=== PATIENT | female | born 1995 | race Caucasian/White ===

== ENCOUNTER → 2021-04-21 13:06 | Outpatient (BNVA) | payer SELFPAY | PROVIDERS: Visit Provider Nurse Practitioner Women's Health | DX: Z87.59 Personal history of other complications of pregnancy, childbirth and the puerperium (principal) | CPT/HCPCS: 81025; 84702 ==

== ENCOUNTER → 2021-04-23 10:03 | Outpatient (BNVA) | payer SELFPAY | PROVIDERS: Visit Provider Nurse Practitioner Women's Health | DX: Z87.59 Personal history of other complications of pregnancy, childbirth and the puerperium (principal) | CPT/HCPCS: 84702 ==

== ENCOUNTER → 2021-05-07 08:30 | Outpatient (BNVA) | payer SELFPAY | PROVIDERS: Visit Provider Nurse Practitioner Women's Health | DX: Z34.80 Encounter for supervision of other normal pregnancy, unspecified trimester (principal) | CPT/HCPCS: 81000 ==

== ENCOUNTER → 2021-05-31 13:40 | Outpatient (BNVA) | payer SELFPAY | PROVIDERS: Visit Provider Obstetrics & Gynecology | DX: Z34.80 Encounter for supervision of other normal pregnancy, unspecified trimester (principal) | CPT/HCPCS: 80307; 81000; 84443; 85025; 86592; 86762; 86803; 86850; 86900; 87086; 87340 ==

== ENCOUNTER → 2021-06-17 13:02 | Outpatient (BNVA) | payer SELFPAY | PROVIDERS: Visit Provider Obstetrics & Gynecology | DX: Z34.80 Encounter for supervision of other normal pregnancy, unspecified trimester (principal) | CPT/HCPCS: 81000; 87491; 87591; 87661; 88175 ==

== ENCOUNTER → 2021-07-19 11:46 | Outpatient (BNVA) | payer SELFPAY | PROVIDERS: Visit Provider Obstetrics & Gynecology | DX: Z34.80 Encounter for supervision of other normal pregnancy, unspecified trimester (principal) | CPT/HCPCS: 81000 ==

== ENCOUNTER → 2021-08-12 14:05 | Outpatient (BNVA) | payer SELFPAY | PROVIDERS: Visit Provider Obstetrics & Gynecology | DX: Z34.80 Encounter for supervision of other normal pregnancy, unspecified trimester (principal) | CPT/HCPCS: 81000 ==

== ENCOUNTER → 2021-09-03 11:29 | Outpatient (BNVA) | payer SELFPAY | PROVIDERS: Visit Provider Obstetrics & Gynecology | DX: O99.891 Other specified diseases and conditions complicating pregnancy (principal); Z67.91 Unspecified blood type, Rh negative; Z81.0 Family history of intellectual disabilities; Z82.79 Family history of other congenital malformations, deformations and chromosomal abnormalities; O99.340 Other mental disorders complicating pregnancy, unspecified trimester; F32.A Depression, unspecified; Z3A.00 Weeks of gestation of pregnancy not specified | CPT/HCPCS: 81000 ==

== ENCOUNTER → 2021-10-01 09:55 | Outpatient (BNVA) | payer SELFPAY | PROVIDERS: Visit Provider Obstetrics & Gynecology | DX: Z34.80 Encounter for supervision of other normal pregnancy, unspecified trimester (principal) | CPT/HCPCS: 81000; 82950; 84443; 85025; 86850 ==

== ENCOUNTER → 2021-10-15 10:55 | Outpatient (BNVA) | payer SELFPAY | PROVIDERS: Visit Provider Obstetrics & Gynecology | DX: Z34.90 Encounter for supervision of normal pregnancy, unspecified, unspecified trimester (principal) | CPT/HCPCS: 81000 ==

== ENCOUNTER → 2021-11-03 09:30 | Outpatient (BNVA) | payer SELFPAY | PROVIDERS: Visit Provider Obstetrics & Gynecology | DX: Z34.80 Encounter for supervision of other normal pregnancy, unspecified trimester (principal) | CPT/HCPCS: 81000 ==

== ENCOUNTER → 2021-11-12 13:22 | Outpatient (BNVA) | payer SELFPAY | PROVIDERS: Visit Provider Obstetrics & Gynecology | DX: Z34.80 Encounter for supervision of other normal pregnancy, unspecified trimester (principal) | CPT/HCPCS: 81000 ==

== ENCOUNTER → 2021-11-26 11:31 | Outpatient (BNVA) | payer SELFPAY | PROVIDERS: Visit Provider Obstetrics & Gynecology | DX: Z34.80 Encounter for supervision of other normal pregnancy, unspecified trimester (principal) | CPT/HCPCS: 81000; 87081 ==

== ENCOUNTER 2021-12-09 15:20 | Outpatient (CLI) | payer SELFPAY ==
[2021-12-09] VITALS (7 sets, daily range): BP systolic 101–114; BP diastolic 62–69; PULSE 67–73; RESP 16–18; TEMP 36.1; BMI 27.6
[2021-12-09 16:21] LABS: Add Urine Culture? Yes; Bacteria Urine 1+ /hpf; Bilirubin Urine Neg (Negative); Blood Urine Neg (Negative); Glucose Urine UA Norm (Normal); Ketones Urine Negative (Negative); Leukocyte Esterase Urine Trace (Negative); Nitrate Urine Negative (Negative); Protein Urine Neg (Negative); RBC Urine 0-4 /hpf (0-2); Specific Gravity, Urine 1.005 (1.005-1.030); Squamous Epithelial Cell Urine 0-4 /hpf (0-5); Urine Appearance Clear (CLEAR); Urine Color Yellow (Yellow); Urobilinogen Urine Norm (Negative); WBC Urine 0-4 /hpf (0-5); pH Urine 7 (5-7)
[2021-12-24 11:57] VITALS: BP 99/70; PULSE 79; TEMP 36.7
[2021-12-24 12:13] VITALS: BP 103/64; PULSE 81
[2021-12-24 12:26] VITALS: BP 111/69; PULSE 72
== END 2021-12-09 15:55 | disposition home or self-care (01) ==
LOC: OPOB 15:27 → OBGYN 15:28
PROVIDERS: Visit Provider Obstetrics & Gynecology
DX: O26.899 Other specified pregnancy related conditions, unspecified trimester (principal); Z3A.00 Weeks of gestation of pregnancy not specified; M54.50 Low back pain, unspecified; R51.9 Headache, unspecified
CPT/HCPCS: 59025; 81001; 87086; 99211

== ENCOUNTER → 2021-12-10 14:04 | Outpatient (BNVA) | payer SELFPAY | PROVIDERS: Visit Provider Obstetrics & Gynecology | DX: Z34.90 Encounter for supervision of normal pregnancy, unspecified, unspecified trimester (principal) | CPT/HCPCS: 81000 ==

== ENCOUNTER → 2021-12-17 11:07 | Outpatient (BNVA) | payer SELFPAY | PROVIDERS: Visit Provider Obstetrics & Gynecology | DX: Z34.80 Encounter for supervision of other normal pregnancy, unspecified trimester (principal) | CPT/HCPCS: 81000 ==

== ENCOUNTER 2021-12-24 12:35 | Inpatient (IN) | payer SELFPAY ==
[2021-12-24] VITALS (26 sets, daily range): BP systolic 93–135; BP diastolic 55–80; PULSE 56–81; RESP 15–18; TEMP 36.7–36.9; BMI 27.9
--- NOTE | 2021-12-24 13:27 | PM.OPHPUD ---
Labor & Delivery H&P Update Date of Procedure: December 24, 2021 Date H&P Performed: 12/24/21 H&P update information: I have reviewed H&P completed within last 30 days, I have examined patient prior to procedure and No changes to prior documentation Admission Diagnosis: Term Primary indication for procedure: Elective induction Planned procedure: Vaginal delivery
[2021-12-24] MEDS: miSOPROStol 100 mcg tablet 25 MCG VAGINAL (13:29)
[2021-12-24 14:01] LABS: Basophils # 0.1 10^3/uL (0.0-0.1); Basophils % 0.5 %; Eosinophils # 0.1 10^3/uL (0.0-0.8); Eosinophils % 0.6 %; Hematocrit 35.8 % (37.0-47.0); Hemoglobin 12.3 g/dL (11.5-15.3); Lymphocytes # 1.7 10^3/uL (0.8-4.8); Lymphocytes % 12.4 %; Mean Corpuscular HGB Conc 34.4 g/dL (30.0-36.0); Mean Corpuscular Hemoglobin 28.3 pg (28.0-34.0); Mean Corpuscular Volume 82.5 fl (81-99); Mean Platelet Volume 10.9 fL (7.4-10.4); Monocytes # 0.7 10^3/uL (0.2-0.9); Monocytes % 5.3 %; Neutrophils # 11.22 10^3/uL (1.8-7.7); Neutrophils % 80.3 %; Nucleated Red Blood Cells % 0 %; Platelet Count 243 10^3/cmm (130-400); Red Blood Count 4.34 10^6/uL (4.1-5.3); Red Cell Distribution Width 13.6 % (12.1-15.1)
[2021-12-24] MEDS: dextrose 5%-lactated ringers 1,000 ML 125 ML IV (21:25)
[2021-12-24] MEDS: oxytocin 30 UNIT/500 ML BAG IV (23:00)
[2021-12-25] VITALS (33 sets, daily range): BP systolic 86–161; BP diastolic 50–87; PULSE 49–146; RESP 15–18; TEMP 36.7–37.2
[2021-12-25] MEDS: lactated ringers 1,000 ML 999 ML IV (03:20)
[2021-12-25 04:21] LABS: Base Excess Cord Venous Blood -7.8; Cord Venous Blood HCO3 19.9; Cord Venous Blood PCO2 47.8; Cord Venous Blood PO2 47.8; Cord Venous Blood pH 7.229; O2 Saturation Cord Venous Bld 63.9
[2021-12-25] MEDS: miSOPROStol 200 mcg Tablet 800 MCG PR (04:24)
--- NOTE | 2021-12-25 04:40 | PM.DELIVERY ---
Delivery Note: Date of delivery: December 25, 2021 - PRE-DELIVERY DIAGNOSIS: 26-year-old 5 para 1-0-3-1 at 40 weeks and 0 days gestation Rh--declined RhoGAM Rubella nonimmune Previous child with congenital heart defect POST-DELIVERY DIAGNOSIS: Vaginal delivery with forehead presentation on 12/25/2021 Rh--declining RhoGAM Rubella nonimmune declining MMR PROCEDURE: Vaginal delivery on 12/25/2021 ANESTHESIA: Local anesthesia with 2% lidocaine DELIVERING PHYSICIAN: Juan M Jacob FACOG PRE-DELIVERY COURSE: is a 26-year-old 5 para 1-0-3-1 at 40 weeks and 0 days gestation who was admitted to labor and delivery by Dr. Gonzalez at 11 AM on 12/24/2021 for elective induction of labor. Her induction was started with Cytotec placed at 1:30 PM at which time her cervix was 1 to 2 cm, 50% effaced and -3 station, cephalic. She was samia every 2 to 4 minutes and had a category 1 tracing after Cytotec and was a little uncomfortable. She was observed in with cervical change to about 5 cm after which she made no further cervical change for about 2 hours. Decision was made in conjunction with patient to perform artificial rupture of membranes. This was performed at 9:20 PM on 12/24/2021 with clear fluids. Exam at this time was 6 to 7 cm, 50% and -2 station. She made minimal cervical change after this and contractions spaced out into a couplet pattern and she was significantly less uncomfortable. Decision was made to start augmentation of Pitocin which was started at 11:30 PM and titrated to a maximum of 9 mIU. With this she started to have regular contractions and made cervical change and was fully dilated at 3:45 PM on 12/25/2021 and set up in lithotomy position ready to push. tracing was overall category 1 with occasional variable decelerations which resolved with position change. DELIVERY NOTE: She was set up in lithotomy position and was pushing effectively. She was noted to be +3 station and continued pushing well. The head delivered in forehead presentation, no nuchal cord was present. The shoulders and rest of the body followed with her next push. The baby's mouth and nose were suctioned and the baby was placed on the mother's belly. Once cord pulsations stopped the cord was clamped and cut. The placenta delivered spontaneously intact with membranes and was discarded. The fundus was noted to be firm and well contracted. The lower uterine segment was however boggy and patient was very uncomfortable during bimanual massage and 800 mcg of Cytotec was placed after which tone improved. The vagina and cervix were inspected and no cervical or sulcal lacerations were noted. The perineum was noted to be intact except for second-degree tear which was repaired after infiltration with 2% lidocaine with 3-0 Vicryl in a continuous interlocking fashion. Good hemostasis and reapproximation was obtained. Baby boy, James born at 4:05 AM on 12/25/2021 with 8/9, weighing 8 pounds 5 ounces, 3780 g, 21-1/2 inches long. Placenta was delivered spontaneously intact with membranes at 4:10 AM. Cotyledons were intact , centrally inserted umbilical cord with 3 vessels noted. Estimated blood loss 350 mL. Complications-none, both baby and mother were left to recover in a stable condition. Patient has significant caput on the forehead but no obvious deformities noted in head. This documentation was created by [employer] highway patrol commander software (known for inherent highway patrol commander error). Every effort was made to assure accuracy of highway patrol commander. Any obvious errors or omissions should be clarified with the author of the document. History History History 5 Term 1 Miscarriages/Ectopic 3 0 Living Children 1 Coding Level of Care Code Acute Mill Platform Supervisor for Lex Barragan
[2021-12-25] MEDS: lidocaine 2% INJ 20 mL INJECTION (06:13)
[2021-12-25 17:08] LABS: Hematocrit 30.9 % (37.0-47.0); Hemoglobin 11.1 g/dL (11.5-15.3); Mean Corpuscular HGB Conc 35.9 g/dL (30.0-36.0); Mean Corpuscular Hemoglobin 28.5 pg (28.0-34.0); Mean Corpuscular Volume 79.2 fl (81-99); Mean Platelet Volume 10.6 fL (7.4-10.4); Platelet Count 216 10^3/cmm (130-400); Red Cell Distribution Width 13.3 % (12.1-15.1)
[2021-12-26 04:34] VITALS: BP 116/67; PULSE 43; RESP 14; O2SAT 98
[2021-12-26 07:30] VITALS: BP 105/65; PULSE 70; RESP 18; TEMP 36.9
--- NOTE | 2021-12-26 11:06 | PM.OBGYDC ---
Discharge Providers BEER STILL RUNNER COMPOUNDER Date of Admission: 12/24/21 12:35 Date of Discharge: 12/26/21 Attending Provider at Admission: Jean Marie Avila MD Attending Provider at Discharge: Juan M maza PRE-DELIVERY DIAGNOSIS: 26-year-old 5 para 1-0-3-1 at 40 weeks and 0 days gestation Rh--declined RhoGAM Rubella nonimmune Previous child with congenital heart defect POST-DELIVERY DIAGNOSIS: Vaginal delivery with forehead presentation on 12/25/2021 Rh--declining RhoGAM Rubella nonimmune declining MMR PROCEDURE: Vaginal delivery on 12/25/2021 ANESTHESIA: Local anesthesia with 2% lidocaine DELIVERING PHYSICIAN: Juan M Maza FACOG PRE-DELIVERY COURSE: is a 26-year-old 5 para 1-0-3-1 at 40 weeks and 0 days gestation who was admitted to labor and delivery by Dr. Gonzalez at 11 AM on 12/24/2021 for elective induction of labor. Her induction was started with Cytotec placed at 1:30 PM at which time her cervix was 1 to 2 cm, 50% effaced and -3 station, cephalic. She was samia every 2 to 4 minutes and had a category 1 tracing after Cytotec and was a little uncomfortable. She was observed in with cervical change to about 5 cm after which she made no further cervical change for about 2 hours. Decision was made in conjunction with patient to perform artificial rupture of membranes. This was performed at 9:20 PM on 12/24/2021 with clear fluids. Exam at this time was 6 to 7 cm, 50% and -2 station. She made minimal cervical change after this and contractions spaced out into a couplet pattern and she was significantly less uncomfortable. Decision was made to start augmentation of Pitocin which was started at 11:30 PM and titrated to a maximum of 9 mIU. With this she started to have regular contractions and made cervical change and was fully dilated at 3:45 PM on 12/25/2021 and set up in lithotomy position ready to push. tracing was overall category 1 with occasional variable decelerations which resolved with position change. DELIVERY NOTE: She was set up in lithotomy position and was pushing effectively. She was noted to be +3 station and continued pushing well. The head delivered in forehead presentation, no nuchal cord was present. The shoulders and rest of the body followed with her next push. The baby's mouth and nose were suctioned and the baby was placed on the mother's belly. Once cord pulsations stopped the cord was clamped and cut. The placenta delivered spontaneously intact with membranes and was discarded. The fundus was noted to be firm and well contracted. The lower uterine segment was however boggy and patient was very uncomfortable during bimanual massage and 800 mcg of Cytotec was placed after which tone improved. The vagina and cervix were inspected and no cervical or sulcal lacerations were noted. The perineum was noted to be intact except for second-degree tear which was repaired after infiltration with 2% lidocaine with 3-0 Vicryl in a continuous interlocking fashion. Good hemostasis and reapproximation was obtained. Baby James milian born at 4:05 AM on 12/25/2021 with 8/9, weighing 8 pounds 5 ounces, 3780 g, 21-1/2 inches long. Placenta was delivered spontaneously intact with membranes at 4:10 AM. Cotyledons were intact , centrally inserted umbilical cord with 3 vessels noted. Estimated blood loss 350 mL. Complications-none, both baby and mother were left to recover in a stable condition. Patient has significant caput on the forehead but no obvious deformities noted in head. HOSPITAL COURSE: She underwent an uncomplicated vaginal delivery on 12/25/2021. She did well on day 0 and was ambulating well, tolerating regular diet, voiding freely, passing flatus. She was breast-feeding without difficulty and bonding well with her son. Pain was well-controlled with by mouth pain medication. She denied nausea, vomiting, fever, chills, shortness of breath, leg pain. She had moderate vaginal bleeding. On day # 1 she continued to do well with stable vital signs and stable hemoglobin at 11.1. She was discharged home on day 1 in a stable condition, as she desired early discharge. Warning signs for endometritis, mastitis, DVT/PE were reviewed with her. Post delivery activity restrictions were also reviewed with her at all her questions were answered to her satisfaction. Undecided about contraception and will discuss this with Dr. Crawford EXAM AT DISCHARGE: Gen.: No acute distress Heart: S1-S2 heard, regular rate and rhythm Lungs: Clear to auscultation bilaterally Abdomen: Soft, fundus firm below umbilicus, Legs: No calf tenderness, no pedal edema. CONDITION AT DISCHARGE: Stable This documentation was created by [employer] insurance billing clerk software (known for inherent insurance billing clerk error). Every effort was made to assure accuracy of insurance billing clerk. Any obvious errors or omissions should be clarified with the author of the document. Reason for Visit Reason for Visit: induction Information Peripartum Data: Delivery Method: Vaginal History History History 5 Term 1 Miscarriages/Ectopic 3 0 Living Children 1 Discharge Data Studies Completed and Pending Laboratory Results WBC 20.0 10^3/uL (4.0-10.0) H 12/25/21 17:00 RBC 3.90 10^6/uL (4.1-5.3) L 12/25/21 17:00 Hgb 11.1 g/dL (11.5-15.3) L 12/25/21 17:00 Hct 30.9 % (37.0-47.0) L 12/25/21 17:00 MCV 79.2 fl (81-99) L 12/25/21 17:00 MCH 28.5 pg (28.0-34.0) 12/25/21 17:00 MCHC 35.9 g/dL (30.0-36.0) 12/25/21 17:00 RDW 13.3 % (12.1-15.1) 12/25/21 17:00 Plt Count 216 10^3/cmm (130-400) 12/25/21 17:00 MPV 10.6 fL (7.4-10.4) H 12/25/21 17:00 Neut % (Auto) 80.3 % 12/24/21 13:40 Lymph % (Auto) 12.4 % 12/24/21 13:40 [place] % (Auto) 5.3 % 12/24/21 13:40 Eos % (Auto) 0.6 % 12/24/21 13:40 Baso % (Auto) 0.5 % 12/24/21 13:40 Neut # (Auto) 11.22 10^3/uL (1.8-7.7) H 12/24/21 13:40 Lymph # (Auto) 1.7 10^3/uL (0.8-4.8) 12/24/21 13:40 [place] # (Auto) 0.7 10^3/uL (0.2-0.9) 12/24/21 13:40 Eos # (Auto) 0.1 10^3/uL (0.0-0.8) 12/24/21 13:40 Baso # (Auto) 0.1 10^3/uL (0.0-0.1) 12/24/21 13:40 Nucleated RBC % (auto) 0 % 12/24/21 13:40 Nucleated RBCs # 0.0 /100WBC 12/24/21 13:40 Cord VBG pH 7.229 12/25/21 04:15 Cord VBG pCO2 47.8 12/25/21 04:15 Cord VBG pO2 47.8 12/25/21 04:15 Cord VBG HCO3 19.9 12/25/21 04:15 Cord VBG Base Excess -7.8 12/25/21 04:15 Cord VBG O2 Sat 63.9 12/25/21 04:15 Vitals Last Vital Signs Temp 98.4 F 12/26/21 07:30 Pulse 70 12/26/21 07:30 Resp 18 12/26/21 07:30 BP 105/65 12/26/21 07:30 Pulse Ox 98 12/26/21 04:34 Discharge Plan Discharge Patient Disposition: Home Condition: Stable Prescriptions: New ibuprofen 800 mg tablet 800 mg PO Q8H Qty: 30 0RF docusate sodium 100 mg Capsule 100 mg PO BID PRN (Reason: constipation) Qty: 30 0RF Continued prenat.vits,belinda,[id number] Tablet 1 tab PO DAILY 0RF Discontinued liquid minerals liquid PO 0RF ferrous gluconate 225 mg (27 mg iron) tablet 225 mg PO DAILY 0RF Discharge Orders: Discharge Order (Routine); Ordered 12/26/21 Ordered By: Juan M Campos Referrals: Rose Crawford MD [Physician] - (6-week visit) Discharge Diet: Regular Discharge Activity: Limit activity as instructed Patient Instructions: Opioid Safety Activity Restrictions/Additional Instructions: No heavy lifting for 6 weeks, pelvic rest for 6 weeks Follow-up with Dr. Crawford for 6-week visit Emergency room precautions reviewed Discharge Attestations BEER STILL RUNNER COMPOUNDER Time Spent in Discharge Care*: greater than 30 min Coding Level of Care Code Acute Commercial Crabber for Lex Barragan
[2021-12-26 11:30] VITALS: BP 117/66; PULSE 66; RESP 18; TEMP 36.8
[2021-12-26 13:51] VITALS: BP 105/65; PULSE 70; RESP 18; TEMP 36.9
== END 2021-12-26 12:00 | disposition home or self-care (01) | DRG 806 ==
PROVIDERS: Obstetrics & Gynecology; Admitting Provider Obstetrics & Gynecology; Visit Provider Obstetrics & Gynecology
DX: O99.344 Other mental disorders complicating childbirth (principal); O36.0930 Maternal care for other rhesus isoimmunization, third trimester, not applicable or unspecified; Z37.0 Single live birth; F32.9 Major depressive disorder, single episode, unspecified; O76 Abnormality in fetal heart rate and rhythm complicating labor and delivery; O70.1 Second degree perineal laceration during delivery; Z3A.40 40 weeks gestation of pregnancy; Z84.81 Family history of carrier of genetic disease; Z81.0 Family history of intellectual disabilities
CPT/HCPCS: 36415; 59025; 59409; 81000; 83986; 85025; 85027; 99211

== ENCOUNTER → 2022-02-11 14:11 | Outpatient (BNVA) | payer SELFPAY | PROVIDERS: Visit Provider Obstetrics & Gynecology | DX: R39.15 Urgency of urination (principal) | CPT/HCPCS: 81000; 87086 ==

== ENCOUNTER 2023-04-04 13:22 | Emergency (ER) | payer SELFPAY ==
[2023-04-04 13:26] VITALS: BMI 23.7
[2023-04-04 13:29] VITALS: BP 110/68; PULSE 76; RESP 12; TEMP 36.8; O2SAT 99
[2023-04-04 13:43] LABS: Basophils # 0.1 10^3/uL (0.0-0.1); Basophils % 0.7 %; Eosinophils # 0.2 10^3/uL (0.0-0.8); Eosinophils % 1.5 %; Hematocrit 39.4 % (36-47); Lymphocytes # 1.8 10^3/uL (0.8-4.8); Lymphocytes % 15.1 %; Mean Corpuscular HGB Conc 33.8 g/dL (30-55); Mean Corpuscular Hemoglobin 27.7 pg (27-33); Mean Corpuscular Volume 82.1 fl (85-98); Monocytes # 0.6 10^3/uL (0.2-0.9); Neutrophils # 9.04 10^3/uL (1.8-7.7); Neutrophils % 77.4 %; Nucleated Red Blood Cells % 0 %; Platelet Count 290 10^3/cmm (157-399); White Blood Count 11.67 10^3/uL (3.29-11.43)
[2023-04-04] MEDS: sodium chloride 0.9% 1,000 ML 999 ML IV (13:47)
--- NOTE | 2023-04-04 13:49 | W.ED.ABDPA2 ---
HPI - Abdominal Pain General: Chief Complaint: Abdominal Pain Stated Complaint: 11 weeks , cramping Time Seen by Provider: 04/04/23 13:32 Source: patient Mode of arrival: ambulatory Limitations: no limitations History of Present Illness: 28-year-old female who is currently roughly 11 weeks states she has had some slight abdominal cramping in her lower abdomen today states its minor nature rates it a 2 out of 10 she has not had an OB appointment 1 make sure baby was okay denies any bleeding denies any vaginal discharge or dysuria Associated Symptoms: Denies chills, diarrhea, dysuria, fever(s), nausea and vomiting Review of Systems Const: Denies: fever(s) or chills ENMT: Denies: throat pain or dental pain Card: Denies: chest pain Resp: Denies: dyspnea GI: Reports: abdominal pain; Denies: nausea, vomiting or diarrhea : Denies: dysuria or vaginal discharge Musc: Denies: neck pain or back pain Skin/Breast: Denies: rash Neuro: Denies: headache(s) PFSH ED PFSH: Medical History No pertinent past medical history neghx: htn,dm,thyroid,dvt/pe PCP: unknown Surgical History No pertinent past surgical history Family History Grandfather Diabetes Maternal Stroke Maternal Denies family history of Colon cancer Ovarian cancer Heart disease Hypercholesteremia Breast cancer Hypertension Uterine cancer Thyroid disease Physical Exam Const: COMMON NORMALS: no acute distress, patient oriented x3 and healthy appearing HENMT: COMMON NORMALS: normocephalic and atraumatic HEAD & SCALP: normocephalic and atraumatic Neck/C-Spine: COMMON NORMALS: full ROM and supple Chest: COMMONS NORMALS: normal inspection of the chest Resp: COMMON NORMALS: normal respiratory effort Cardio: COMMON NORMALS: regular rate, regular rhythm and No murmurs present (Cardio) RATE: regular rate RHYTHM: regular rhythm GI: COMMON NORMALS: Normal to inspection, nondistended, normoactive bowel sounds present, Soft to palpation, non-tender and no masses PALPATION: Yes Soft to palpation Extremity: COMMON NORMALS: normal to inspection and full ROM Neuro: COMMON NORMALS: patient oriented x3, moves all extremities and no focal motor deficits Psych: COMMON NORMALS: mental status grossly normal, Normal thought process present and cooperative THOUGHT PROCESS: Normal thought process present Skin: COMMON NORMALS: no rashes or lesions noted and no wounds GENERAL SKIN EXAM: no rashes or lesions noted Course Vital Signs: Vital signs: Vital Signs Temperature 98.3 F 04/04/23 13:29 Pulse Rate 76 04/04/23 13:29 Respiratory Rate 12 04/04/23 13:29 Blood Pressure 110/68 04/04/23 13:29 Pulse Oximetry 99 04/04/23 13:29 Oxygen Delivery Me thod Room Air 04/04/23 13:29 MDM - Abdominal Pain Medical Decision Making Patient presents for some abdominal cramping in likely round ligament pain her exam here is benign no signs appendicitis no signs UTI did a bedside ultrasound showed IUP roughly 11 weeks heart rate 146 no signs of ectopic she is stable for discharge follow-up with OB return if worsening Medical Records I reviewed the patient's medical records. Lab Data I reviewed the patient's lab results. 04/04/23 13:36 04/04/23 13:36 Labs/Radiology: Laboratory Results WBC 11.67 10^3/uL (3.29-11.43) H 04/04/23 13:36 RBC 4.80 10^6/uL (3.85-5.65) 04/04/23 13:36 Hgb 13.30 g/dL (11.27-16.99) 04/04/23 13:36 Hct 39.4 % (36-47) 04/04/23 13:36 MCV 82.1 fl (85-98) L 04/04/23 13:36 MCH 27.7 pg (27-33) 04/04/23 13:36 MCHC 33.8 g/dL (30-55) 04/04/23 13:36 RDW 13.0 % (12.1-15.1) 04/04/23 13:36 Plt Count 290 10^3/cmm (157-399) 04/04/23 13:36 MPV 10.0 fL (7.4-10.4) 04/04/23 13:36 Neut % (Auto) 77.4 % 04/04/23 13:36 Lymph % (Auto) 15.1 % 04/04/23 13:36 [place] % (Auto) 5.0 % 04/04/23 13:36 Eos % (Auto) 1.5 % 04/04/23 13:36 Baso % (Auto) 0.7 % 04/04/23 13:36 Neut # (Auto) 9.04 10^3/uL (1.8-7.7) H 04/04/23 13:36 Lymph # (Auto) 1.8 10^3/uL (0.8-4.8) 04/04/23 13:36 [place] # (Auto) 0.6 10^3/uL (0.2-0.9) 04/04/23 13:36 Eos # (Auto) 0.2 10^3/uL (0.0-0.8) 04/04/23 13:36 Baso # (Auto) 0.1 10^3/uL (0.0-0.1) 04/04/23 13:36 Nucleated RBC % (auto) 0 % 04/04/23 13:36 Nucleated RBCs # 0.0 /100WBC 04/04/23 13:36 Sodium 138 mmol/L (136-145) 04/04/23 13:36 Potassium 3.8 mmol/L (3.5-5.1) 04/04/23 13:36 Chloride 104 mmol/L (98-107) 04/04/23 13:36 Carbon Dioxide 24 mmol/L (22-29) 04/04/23 13:36 Anion Gap 13.8 (5-19) 04/04/23 13:36 BUN 12 mg/dL (6-20) 04/04/23 13:36 Creatinine 0.6 mg/dL (0.5-0.9) 04/04/23 13:36 GFR Calculation 119.9 mL/min (90-130) 04/04/23 13:36 Glucose 105 mg/dL (65-115) 04/04/23 13:36 Calculated Osmolality 286 mOsm/kg (285-295) 04/04/23 13:36 Calcium 9.3 mg/dL (8.5-10.5) 04/04/23 13:36 Total Bilirubin 0.2 mg/dL (0.15-1.2) 04/04/23 13:36 AST 12 U/L (0-32) 04/04/23 13:36 ALT < 5 U/L (0-33) 04/04/23 13:36 Alkaline Phosphatase 65 U/L (35-105) 04/04/23 13:36 Total Protein 7.0 g/dL (6.6-8.7) 04/04/23 13:36 Albumin 4.6 g/dL (3.5-5.2) 04/04/23 13:36 Globulin 2.4 g/dL (1.3-4.6) 04/04/23 13:36 Urine Color Light yellow (Yellow) 04/04/23 13:52 Urine Appearance Sl hazy (CLEAR) A 04/04/23 13:52 Urine pH 6 (5-7) 04/04/23 13:52 Ur Specific [place] 1.010 (1.005-1.030) 04/04/23 13:52 Urine Protein Neg (Negative) 04/04/23 13:52 Urine Glucose (UA) Norm (Normal) 04/04/23 13:52 Urine Ketones Negative (Negative) 04/04/23 13:52 Urine Blood Neg (Negative) 04/04/23 13:52 Urine Nitrate Negative (Negative) 04/04/23 13:52 Urine Bilirubin Neg (Negative) 04/04/23 13:52 Urine Urobilinogen Norm mg/dL (Negative) 04/04/23 13:52 Ur Leukocyte Esterase Trace (Negative) H 04/04/23 13:52 No radiology studies performed this visit Discharge Plan Discharge Patient Disposition: Home Clinical Impression: Abdominal pain affecting Condition: Stable Prescriptions: New Reglan 10 mg tablet 10 mg PO Q6H PRN (Reason: nausea and vomiting) Qty: 20 0RF No Action calcium/magnesium PO 1XD flaxseed oil [[place]-3 Flaxseed Oil] 1,000 mg capsule 1,000 mg PO DAILY Rx Instructions: administer with a meal Discharge Orders: Discharge ED (Routine); Ordered 04/04/23 Ordered By: Rehana Esquivel Discharge Diet: Advance as tolerated Discharge Activity: Resume usual activity Patient Instructions: Abdominal Pain in (ED) Coding Level of Care Code ED Hand Ii Thermal Cutter for Chg Yung
[2023-04-04] MEDS: metoclopramide 5 mg/mL SDV 2 mL 10 MG IVP (13:53)
[2023-04-04] MEDS: diphenhydrAMINE 50 mg/mL SDV 1mL IVP (13:53)
[2023-04-04 14:01] LABS: Alanine Aminotransferase < 5 U/L (0-33); Albumin Level 4.6 g/dL (3.5-5.2); Alkaline Phosphatase 65 U/L (35-105); Anion Gap 13.8 (5-19); Aspartate Amino Transferase 12 U/L (0-32); Blood Urea Nitrogen 12 mg/dL (6-20); Calcium 9.3 mg/dL (8.5-10.5); Carbon Dioxide 24 mmol/L (22-29); Chloride 104 mmol/L (98-107); Globulin 2.4 g/dL (1.3-4.6); Glomerular Filtration Rate 119.9 mL/min (90-130); Glucose 105 mg/dL (65-115); Osmolality Calculated 286 mOsm/kg (285-295); Potassium 3.8 mmol/L (3.5-5.1); Sodium 138 mmol/L (136-145); Total Bilirubin 0.2 mg/dL (0.15-1.2)
[2023-04-04 14:27] LABS: Add Urine Microscopic? YES; Bilirubin Urine Neg (Negative); Blood Urine Neg (Negative); Glucose Urine UA Norm (Normal); Ketones Urine Negative (Negative); Leukocyte Esterase Urine Trace (Negative); Nitrate Urine Negative (Negative); Protein Urine Neg (Negative); Urine Appearance SL Hazy (CLEAR); Urine Color Light yellow (Yellow); Urobilinogen Urine Norm (Negative); pH Urine 6 (5-7)
[2023-04-04 14:35] LABS: Add Urine Culture? No; Bacteria Urine TRACE /hpf; Squamous Epithelial Cell Urine 0-4 /hpf (0-5); WBC Urine 0-4 /hpf (0-5)
== END 2023-04-04 14:43 | disposition home or self-care (01) ==
PROVIDERS: Emergency Provider Emergency Medicine
DX: O26.891 Other specified pregnancy related conditions, first trimester (principal); R10.30 Lower abdominal pain, unspecified; Z3A.11 11 weeks gestation of pregnancy
CPT/HCPCS: 36415; 80053; 81001; 85025; 96374; 96375; 99284; J1200; J2765; J7030

== ENCOUNTER → 2023-04-25 14:53 | Outpatient (BNVA) | payer SELFPAY | PROVIDERS: Visit Provider Obstetrics & Gynecology | DX: Z34.80 Encounter for supervision of other normal pregnancy, unspecified trimester (principal) | CPT/HCPCS: 76815; 80307; 81000; 85027; 86592; 86762; 86803; 86850; 86900; 87086; 87340; 87806 ==

== ENCOUNTER → 2023-05-08 08:04 | Outpatient (BNVA) | payer SELFPAY | PROVIDERS: Visit Provider Obstetrics & Gynecology | DX: Z34.80 Encounter for supervision of other normal pregnancy, unspecified trimester (principal) | CPT/HCPCS: 81000; 87491; 87591 ==

== ENCOUNTER → 2023-06-06 09:06 | Outpatient (BNVA) | payer SELFPAY | PROVIDERS: Visit Provider Obstetrics & Gynecology | DX: Z36.89 Encounter for other specified antenatal screening (principal); Z3A.20 20 weeks gestation of pregnancy; R93.89 Abnormal findings on diagnostic imaging of other specified body structures | CPT/HCPCS: 76805 ==

== ENCOUNTER → 2023-06-22 15:42 | Outpatient (BNVA) | payer SELFPAY | PROVIDERS: Visit Provider Obstetrics & Gynecology | DX: Z34.80 Encounter for supervision of other normal pregnancy, unspecified trimester (principal) | CPT/HCPCS: 81000 ==

== ENCOUNTER → 2023-07-24 11:54 | Outpatient (BNVA) | payer SELFPAY | PROVIDERS: Visit Provider Obstetrics & Gynecology | DX: Z34.80 Encounter for supervision of other normal pregnancy, unspecified trimester (principal) | CPT/HCPCS: 81000 ==

== ENCOUNTER → 2023-08-17 13:16 | Outpatient (BNVA) | payer SELFPAY | PROVIDERS: Visit Provider Obstetrics & Gynecology | DX: Z34.80 Encounter for supervision of other normal pregnancy, unspecified trimester (principal) | CPT/HCPCS: 81000; 85025; 86850 ==

== ENCOUNTER → 2023-08-31 08:02 | Outpatient (BNVA) | payer SELFPAY | PROVIDERS: Visit Provider Obstetrics & Gynecology | DX: Z34.80 Encounter for supervision of other normal pregnancy, unspecified trimester (principal) | CPT/HCPCS: 81000 ==

== ENCOUNTER → 2023-09-28 15:37 | Outpatient (BNVA) | payer SELFPAY | PROVIDERS: Visit Provider Obstetrics & Gynecology | DX: Z34.80 Encounter for supervision of other normal pregnancy, unspecified trimester (principal) | CPT/HCPCS: 81000; 87081 ==

== ENCOUNTER → 2023-10-06 07:57 | Outpatient (BNVA) | payer SELFPAY | PROVIDERS: Visit Provider Obstetrics & Gynecology | DX: Z34.80 Encounter for supervision of other normal pregnancy, unspecified trimester (principal); Z82.79 Family history of other congenital malformations, deformations and chromosomal abnormalities; Z67.91 Unspecified blood type, Rh negative | CPT/HCPCS: 81000 ==

== ENCOUNTER → 2023-10-12 15:19 | Outpatient (BNVA) | payer SELFPAY | PROVIDERS: Visit Provider Obstetrics & Gynecology | DX: Z34.80 Encounter for supervision of other normal pregnancy, unspecified trimester (principal) | CPT/HCPCS: 81000 ==

== ENCOUNTER → 2023-10-19 07:50 | Outpatient (BNVA) | payer SELFPAY | PROVIDERS: Visit Provider Obstetrics & Gynecology | DX: Z34.80 Encounter for supervision of other normal pregnancy, unspecified trimester (principal) | CPT/HCPCS: 81000 ==

== ENCOUNTER → 2023-10-25 12:19 | Outpatient (BNVA) | payer SELFPAY | PROVIDERS: Visit Provider Obstetrics & Gynecology | DX: O26.893 Other specified pregnancy related conditions, third trimester (principal); Z3A.39 39 weeks gestation of pregnancy | CPT/HCPCS: 76815; 76819 ==

== ENCOUNTER 2023-10-27 23:58 | Inpatient (IN) | payer SELFPAY ==
[2023-10-27] VITALS (7 sets, daily range): BP systolic 108–119; BP diastolic 61–74; PULSE 55–73; BMI 29.2
[2023-10-28] VITALS (9 sets, daily range): BP systolic 97–119; BP diastolic 52–65; PULSE 56–71; RESP 15–17; TEMP 36.7; O2SAT 99
[2023-10-28 00:31] LABS: Basophils # 0.1 10^3/uL (0.0-0.1); Basophils % 0.6 %; Eosinophils # 0.1 10^3/uL (0.0-0.8); Eosinophils % 0.6 %; Hematocrit 37.3 % (36-47); Lymphocytes # 2.2 10^3/uL (0.8-4.8); Lymphocytes % 15.3 %; Mean Corpuscular HGB Conc 33.2 g/dL (30-55); Mean Corpuscular Volume 84.2 fl (85-98); Mean Platelet Volume 11.2 fL (7.4-10.4); Monocytes # 0.8 10^3/uL (0.2-0.9); Monocytes % 5.7 %; Neutrophils # 11.02 10^3/uL (1.8-7.7); Neutrophils % 76.9 %; Nucleated Red Blood Cells % 0 %; Platelet Count 231 10^3/cmm (157-399); Red Blood Count 4.43 10^6/uL (3.85-5.65); Red Cell Distribution Width 13.5 % (12.1-15.1); White Blood Count 14.33 10^3/uL (3.29-11.43)
[2023-10-28] MEDS: dextrose 5%-lactated ringers 1,000 ML 125 ML IV (00:50)
[2023-10-28] MEDS: oxytocin 30 UNIT/500 ML BAG 600 UNIT IV (00:50)
--- NOTE | 2023-10-28 01:13 | PM.OBGYHP ---
Providers/Chief Complaint Admitting Physician: Jess Copeland DO Primary COMMUNITY HEALTH NURSING DIRECTOR: Dr. Avila Chief Complaint: contractions HPI COMMUNITY HEALTH NURSING DIRECTOR History of Present Illness Shirin Dykes is a 28 year old female AB 4 L2 with LMP 01/17/2023 and JOLENE 10/24/2023. Patient has been receiving care with Dr. Amaro with an unremarkable history. Patient was admitted with complaints of contractions every 5 minutes and progressed to contractions every 2 minutes with cervical change from 3 cm to 4 cm / 70%/-2 vertex presentation. Patient denied vaginal bleeding or leakage of fluid. Patient desires vaginal delivery with no pain medication and as few interventions as needed. Present Details : 7 Para: 2 Labs Blood type OB HPI: 0 (-) negative Rubella: Non-Immune RPR: Negative GBS: Negative HBsAG: Negative Review of Systems General: Reports: 10 or more systems reviewed and unremarkable except in HPI and below Narrative: movement: no Const: Denies: fever(s) or chills Card: Denies: chest pain, palpitations, irregular heart rhythm or syncope Resp: Denies: dyspnea GI: Denies: abdominal pain, nausea or vomiting : Denies: flank pain, dysuria, urinary frequency or urinary urgency Musc: Denies: back pain or extremity swelling Skin/Breast: Denies: rash, pruritus, breast pain, nipple discharge or breast mass Neuro: Denies: headache(s), difficulty walking, dizziness or restless legs Psych: Denies: anxiety, depression or mood swings Endo: Denies: polyuria, tired all the time, cold intolerance or heat intolerance Rajinder/Lymph: Denies: easy bruising, easy bleeding, petechiae or purpura All/Imm: Denies: urticaria Medications/Allergies Home Medications Medication Instructions Recorded Confirmed Last Taken Type vitamin#30 30 mg iron-10 cap PO 04/25/23 10/19/23 Unknown History mg iron-folic acid 1 mg-omg3 capsule Allergies Allergy/AdvReac Type Severity Reaction Status Date / Time steroids Allergy itching Uncoded 10/19/23 11:42 blisters PFSH COMMUNITY HEALTH NURSING DIRECTOR PFSH: Medical History No pertinent past medical history neghx: htn,dm,thyroid,dvt/pe PCP: Riddhi leonardo Seymour Surgical History No pertinent past surgical history Family History Grandfather Diabetes Maternal Stroke Maternal Brother Colon cancer, Onset Age: 38 Denies family history of Ovarian cancer Heart disease Hypercholesteremia Breast cancer Hypertension Uterine cancer Thyroid disease Other Female Reproductive History: Hx Age of Menarche: 13 Duration of menses: 3-5 days Date of Last Menstrual Period: 01/17/23 Cycle Length: 30 days Menstrual flow: normal/abnormal: normal Sexual History: How old were you when you first had sex?: 23 How many partners have you had?: 1 How long have you been with your current partner?: 2019 What is your sexual preference?: Heterosexual Hx Sexually Transmitted Diseases: No Contraception: Contraception History Comment: condoms and withdrawal History History History 7 Term 2 0 Miscarriages/Ectopic 4 Living Children 2 Other History: 2018?SAB 6 weeks, no D&C 2019 6 pounds 12 ounces, infant with VSD Home delivery. Baby had open heart surgery at 4 weeks of age. 2019?SAB, no D&C 2019?SAB at 10 weeks, no D&C 2021 male, , 8 pounds 5 ounces, complicated by Rh- (declined RhoGAM) 2022?SAB Care JOLENE Calculator Estimated Delivery Date Method Current WG Current Estimate 10/24/23 LMP (Certain) 40w 4d Other Estimates 10/23/23 Ultrasound #1 40w 5d Expected Delivery Route/Plan Anticipate Specific Issues/Plans HX CHILD WITH VSD LATE CARE RH NEGATIVE BLOOD Vitals/I&O/Wt Last Vital Signs Pulse 59 L 10/27/23 23:17 BP 116/64 10/27/23 23:17 Weight last 48 hrs Weight 87.09 kg Physical Exam Const: COMMON NORMALS: no acute distress, patient oriented x3, healthy appearing, alert and well nourished HENMT: COMMON NORMALS: normocephalic and moist oral mucous membranes Resp: COMMON NORMALS: normal respiratory effort and clear to auscultation bilaterally Cardio: COMMON NORMALS: regular rate and regular rhythm GI: COMMON NORMALS: Soft to palpation and non-tender Back/Pelvis: COMMON NORMALS: no CVA tenderness Extremity: COMMON NORMALS: normal to inspection, no clubbing, cyanosis or edema and no calf tenderness Neuro: COMMON NORMALS: patient oriented x3, CN's II-XII intact bilaterally and moves all extremities Data 10/28/23 00:00 Results Labs OB ([facility]): Obstetrics US 04/25/23 Obstetrics US/Biophysical Profile 10/25/23 Blood Type O Negative 10/28/23 Antibody Screen Negative 10/28/23 Hct 37.3 % (36-47) 10/28/23 Hgb 12.40 g/dL (11.27-16.99) 10/28/23 Rho(D) Type Rh negative 10/28/23 Plt Count 231 10^3/cmm (157-399) 10/28/23 Hep Bs Antigen Non-reactive (Nonreactive) 04/25/23 Hepatitis C Antibody Non-reactive (Nonreactive) 04/25/23 Rubella IgG Antibody 0.2 IU/mL (0.0-10.0) 04/25/23 RPR Nonreactive (Nonreactive) 04/25/23 HIV 1&2 Ab & HIV 1 Ag Non-reactive (Non-Reactiv) 04/25/23 TSH 1.26 uIU/mL (0.27-4.20) 10/01/21 C.trachomatis RNA (TMA) Not detected (NOT DETECTED) 05/08/23 N.gonorrhoeae RNA (TMA) Not detected (NOT DETECTED) 05/08/23 T. vaginalis Amp RNA Not detected (NOT DETECTED) 05/08/23 Chlamydia/GC Comment See note 05/08/23 Gest Glucose Tolerance 81 mg/dL 10/01/21 Ser , Semi-Qnt 5229.00 mIU/mL 04/23/21 HCG, Qual Positive (Negative) H 04/21/21 Urine Opiates Screen Negative ng/mL (Negative) 04/25/23 Ur Barbiturates Screen Negative ng/mL (Negative) 04/25/23 Ur Phencyclidine Scrn Negative ng/mL (Negative) 04/25/23 Ur Amphetamines Screen Negative ng/mL (Negative) 04/25/23 U Benzodiazepines Scrn Negative ng/mL (Negative) 04/25/23 Urine Cocaine Screen Negative ng/mL (Negative) 04/25/23 U Marijuana (THC) Screen Negative ng/mL (Negative) 04/25/23 Micro Urine Specimen 04/25/23 Pap Smear Interpret See note 06/17/21 A&P Assessment and plan (1) 40 weeks gestation of : Admitted to labor and delivery for management of labor. (2) Rubella non-immune status, antepartum: (3) Rh D negative blood type: (4) Supervision of other normal : (5) Family history of congenital heart defect: Attestations Medical Necessity Statement*: Admitted to labor and delivery for management of labor. Coding Level of Care Code Acute Code for Chg Fwd Diagnoses 40 weeks gestation of Z3A.40 Rubella non-immune status, antepartum O09.899; Z28.39 Rh D negative blood type Z67.91 Supervision of other normal Z34.80 Family history of congenital heart defect Z82.79
--- NOTE | 2023-10-28 01:32 | PM.DELIVERY ---
Delivery Note: Date of delivery: October 28, 2023 Pre-delivery diagnoses: 28-year-old female G7, P2 at 40.4 weeks gestation admitted to labor and delivery in active labor. Rh- blood type Rubella nonimmune History of first baby with congenital heart defect?VSD requiring open heart surgery at 4 weeks of age. GBS negative Post-delivery diagnoses: Same Nuchal cord and body cord Procedure: viable female 7 pounds 14 ounces 8/9 Op report anesthesia: None Delivering Physician: Min LOPEZ Estimated blood loss (mL): 200 Findings: Viable female Delivery: 28-year-old female with of a viable female. Vertex presented to perineum precipitously, nuchal cord was noted to be tight, patient pushed and delivered baby's body and the cord was reduced. Delay in clamping of the cord. The baby was stimulated and dried, the cord was then clamped and cut. The bulb suction was used to clear the oral pharynx. Baby's color was nice and pink, baby required DeLee suction to clear the oropharynx. Spontaneous robust cry was noted. After baby evaluation baby was placed on mother's chest for bonding. Cord blood was obtained. The uterus was massaged and the placenta presented in a Garcia presentation with trailing membranes. Three-vessel cord was noted. The uterus was massaged and noted to be firm. Pitocin IV fluid was given in a bolus manner. Patient's perineum was evaluated as well as vaginal vault with no lacerations noted. Mother and infant are both in stable and satisfactory condition. Fundal massage was reviewed and demonstrated with patient. Post-Delivery Status: Stable History History History 7 Term 3 0 Miscarriages/Ectopic 4 Living Children 3 Other History: 2019?SAB 6 weeks, no D&C 2019 6 pounds 12 ounces, with VSD Home delivery. Baby had open heart surgery at 4 weeks of age. 2020?SAB, no D&C 2019?SAB at 10 weeks, no D&C 2021 male, , 8 pounds 5 ounces, complicated by Rh- (declined RhoGAM) 2022?SAB 2023?current A&P Assessment and plan (1) 40 weeks gestation of : Admitted to labor and delivery for management of labor. (2) Rubella non-immune status, antepartum: (3) Rh D negative blood type: (4) Supervision of other normal : (5) Family history of congenital heart defect: Plan Began care. Coding Level of Care Code Acute Code for Chg Fwd Diagnoses 40 weeks gestation of Z3A.40 Rubella non-immune status, antepartum O09.899; Z28.39 Rh D negative blood type Z67.91 Supervision of other normal Z34.80 Family history of congenital heart defect Z82.79
[2023-10-28 12:32] LABS: Hematocrit 38.5 % (36-47); Mean Corpuscular HGB Conc 33.8 g/dL (30-55); Mean Corpuscular Hemoglobin 28.5 pg (27-33); Mean Corpuscular Volume 84.4 fl (85-98); Mean Platelet Volume 10.4 fL (7.4-10.4); Platelet Count 223 10^3/cmm (157-399); Red Blood Count 4.56 10^6/uL (3.85-5.65); Red Cell Distribution Width 13.6 % (12.1-15.1); White Blood Count 17.54 10^3/uL (3.29-11.43)
--- NOTE | 2023-10-28 14:26 | PM.OBGYDC ---
Discharge Providers [employer] OPERATIONS SUPERINTENDENT Date of Admission: 10/27/23 23:58 Date of Discharge: 10/28/23 Attending Provider at Admission: Jess Copeland DO Attending Provider at Discharge: Jess Copeland DO Primary [employer] OPERATIONS SUPERINTENDENT: Dr. Avila Diagnoses at Discharge Discharge Diagnosis (1) 40 weeks gestation of : Details from hospital stay: 28-year-old female G7, P3 s/p of viable female at 40.4 weeks gestation after 4 hours of labor. Patient denies pain or excessive bleeding. She is tolerating a regular diet, ambulating and voiding. Patient discusses discharge to home soon as possible. I discussed with her staying for 24 hours so that we can evaluate for any emergent problems that may occur. Patient understands and agrees. Discharge and expectations reviewed. Patient is breast-feeding. visit in 4 weeks encouraged. Patient advised to continue vitamins and iron with a healthy high-fiber diet. Status: Acute (2) Rubella non-immune status, antepartum: Status: Acute (3) Rh D negative blood type: Status: Acute (4) Supervision of other normal : Status: Acute (5) Family history of congenital heart defect: Status: Acute Reason for Visit Reason for Visit: contractions Hospital Course Hospital Course See above Information Peripartum Data: Infant Delivery Method: Vaginal Laceration description: None complications: none Physical Exam Resp: COMMON NORMALS: normal respiratory effort and clear to auscultation bilaterally AUSCULTATION: clear to auscultation bilaterally Back/Pelvis: OTHER: Abdomen?soft, fundus firm well below the umbilicus. Lochia is light. Extremity: NARRATIVE EXTREMITY EXAM: No edema, negative Homans' sign. History History History 7 Term 3 0 Miscarriages/Ectopic 4 Living Children 3 Other History: 2019?SAB 6 weeks, no D&C 2019 6 pounds 12 ounces, infant with VSD Home delivery. Baby had open heart surgery at 4 weeks of age. 2020?SAB, no D&C 2019?SAB at 10 weeks, no D&C 2021 male, , 8 pounds 5 ounces, complicated by Rh- (declined RhoGAM) 2022?SAB 2023?current Discharge Data Studies Completed and Pending Laboratory Results WBC 17.54 10^3/uL (3.29-11.43) H 10/28/23 12:25 RBC 4.56 10^6/uL (3.85-5.65) 10/28/23 12:25 Hgb 13.00 g/dL (11.27-16.99) 10/28/23 12:25 Hct 38.5 % (36-47) 10/28/23 12: MCV 84.4 fl (85-98) L 10/28/23 12: MCH 28.5 pg (27-33) 10/28/23 12: MCHC 33.8 g/dL (30-55) 10/28/23 12: RDW 13.6 % (12.1-15.1) 10/28/23 12: Plt Count 223 10^3/cmm (157-399) 10/28/23 12: MPV 10.4 fL (7.4-10.4) 10/28/23 12:25 Neut % (Auto) 76.9 % 10/28/23 00:00 Lymph % (Auto) 15.3 % 10/28/23 00:00 [place] % (Auto) 5.7 % 10/28/23 00:00 Eos % (Auto) 0.6 % 10/28/23 00:00 Baso % (Auto) 0.6 % 10/28/23 00:00 Neut # (Auto) 11.02 10^3/uL (1.8-7.7) H 10/28/23 00:00 Lymph # (Auto) 2.2 10^3/uL (0.8-4.8) 10/28/23 00:00 [place] # (Auto) 0.8 10^3/uL (0.2-0.9) 10/28/23 00:00 Eos # (Auto) 0.1 10^3/uL (0.0-0.8) 10/28/23 00:00 Baso # (Auto) 0.1 10^3/uL (0.0-0.1) 10/28/23 00:00 Nucleated RBC % (auto) 0 % 10/28/23 00:00 Nucleated RBCs # 0.0 /100WBC 10/28/23 00:00 Blood Type O Negative 10/28/23 00:00 Rho(D) Type Rh negative 10/28/23 00:00 Antibody Screen Negative 10/28/23 00:00 Vitals Last Vital Signs Temp 98.0 F 10/28/23 08:00 Pulse 67 10/28/23 08:00 Resp 16 10/28/23 08:00 BP 107/64 10/28/23 08:00 O2 Del Method Room Air 10/27/23 23:50 Results Labs OB ([facility]): Obstetrics US 04/25/23 Obstetrics US/Biophysical Profile 10/25/23 Blood Type O Negative 10/28/23 Antibody Screen Negative 10/28/23 Hct 38.5 % (36-47) 10/28/23 Hgb 13.00 g/dL (11.27-16.99) 10/28/23 Rho(D) Type Rh negative 10/28/23 Plt Count 223 10^3/cmm (157-399) 10/28/23 Hep Bs Antigen Non-reactive (Nonreactive) 04/25/23 Hepatitis C Antibody Non-reactive (Nonreactive) 04/25/23 Rubella IgG Antibody 0.2 IU/mL (0.0-10.0) 04/25/23 RPR Nonreactive (Nonreactive) 04/25/23 HIV 1&2 Ab & HIV 1 Ag Non-reactive (Non-Reactiv) 04/25/23 TSH 1.26 uIU/mL (0.27-4.20) 10/01/21 C.trachomatis RNA (TMA) Not detected (NOT DETECTED) 05/08/23 N.gonorrhoeae RNA (TMA) Not detected (NOT DETECTED) 05/08/23 T. vaginalis Amp RNA Not detected (NOT DETECTED) 05/08/23 Chlamydia/GC Comment See note 05/08/23 Gest Glucose Tolerance 81 mg/dL 10/01/21 Ser , Semi-Qnt 5229.00 mIU/mL 04/23/21 HCG, Qual Positive (Negative) H 04/21/21 Urine Opiates Screen Negative ng/mL (Negative) 04/25/23 Ur Barbiturates Screen Negative ng/mL (Negative) 04/25/23 Ur Phencyclidine Scrn Negative ng/mL (Negative) 04/25/23 Ur Amphetamines Screen Negative ng/mL (Negative) 04/25/23 U Benzodiazepines Scrn Negative ng/mL (Negative) 04/25/23 Urine Cocaine Screen Negative ng/mL (Negative) 04/25/23 U Marijuana (THC) Screen Negative ng/mL (Negative) 04/25/23 Micro Urine Specimen 04/25/23 Pap Smear Interpret See note 06/17/21 Discharge Plan Discharge Patient Disposition: Home Condition: Stable Prescriptions: Continued PNV #[id number] [id number] 30 mg iron-10 mg iron-1 mg capsule PO Discharge Orders: Discharge Order (Routine); Ordered 10/28/23 Ordered By: Jess Copeland Discharge Diet: Regular Discharge Activity: Increase activity as tolerated Patient Instructions: Opioid Safety Activity Restrictions/Additional Instructions: No heavy lifting pushing or pulling. Pelvic rest x 6 weeks. Assessment: S/p viable female at 40.4 weeks gestation Rubella nonimmune Rh- blood type Family history of congenital heart defects Plan of Treatment: Discharge to home Follow-up in 4 weeks in clinic for evaluation and possible contraception. Discharge Attestations [employer] SUPERINTENDENT Time Spent in Discharge Care*: less than 30 min Coding Level of Care Code Acute Code for Chg Fwd Diagnoses 40 weeks gestation of Z3A.40 Rubella non-immune status, antepartum O09.899; Z28.39 Rh D negative blood type Z67.91 Supervision of other normal Z34.80 Family history of congenital heart defect Z82.79
== END 2023-10-28 22:55 | disposition home or self-care (01) | DRG 807 ==
LOC: OPOB 23:59 → OBGYN 23:59
PROVIDERS: Admitting Provider Obstetrics & Gynecology; Visit Provider Obstetrics & Gynecology
DX: O26.893 Other specified pregnancy related conditions, third trimester (principal); Z37.0 Single live birth; Z67.41 Type O blood, Rh negative; O48.0 Post-term pregnancy; Z3A.40 40 weeks gestation of pregnancy
CPT/HCPCS: 36415; 59025; 59409; 85025; 85027; 86850; 86900; 99211; J2590; J7121